=== PATIENT | female | born 1955 | race Two or more races ===

== ENCOUNTER 2022-02-11 11:46 | Emergency (ER) | payer OTHER, MEDICAID ==
[2022-02-11] MEDS ORDERED: NAP500T PO (16:29)
[2022-02-11] MEDS ORDERED: KETOROLAC TROMETH 60MG/2ML VIAL IM ONE (16:30)
[2022-02-11 16:31] VITALS: BP 137/83
== END 2022-02-11 16:48 | disposition home or self-care (01) ==
LOC: ER 11:46
DX: M71.22 Synovial cyst of popliteal space [Baker], left knee (principal)
CPT/HCPCS: 93971; 96372; 99284; J1885